=== PATIENT | male | born 1965 | race Caucasian/White ===

== ENCOUNTER 2021-06-17 18:41 | Emergency (ER) | payer OTHER, MEDICAID, SELFPAY ==
[2021-06-17 18:46] VITALS: BP 124/76; PULSE 100; RESP 16; TEMP 37.1; O2SAT 100
--- NOTE | 2021-06-17 18:50 | DI.RAD.S_ITS ---
PROCEDURE: XR CHEST 1V INDICATIONS: chest pain TECHNIQUE: One view of the chest was acquired. COMPARISON: None. FINDINGS: Surgical changes and devices: Postsurgical changes involving left inferior glenoid is seen.. Lungs and pleura: Lungs are clear. No pleural effusions or pneumothorax. Mediastinum: Mediastinal contours appear normal. Heart size is normal. Bones and chest wall: No suspicious bony lesions. Overlying soft tissues appear unremarkable. IMPRESSION: No acute cardiopulmonary pathology. Dictated by: Toni Short M.D. on 06/17/2021 at 19:19 Approved by: Toni Short M.D. on 06/17/2021 at 19:20
--- NOTE | 2021-06-17 18:59 | ED.CHESTPAIN ---
HPI - Chest Pain General Chief Complaint: Chest Pain Stated Complaint: CHEST PAIN Time Seen by Provider: 06/17/21 18:59 Source: patient Mode of arrival: Ambulatory Related Data Allergies Allergy/AdvReac Type Severity Reaction Status Date / Time Serotonin 5HT-3 Antagonists AdvReac Verified 06/17/21 19:54 Patient History Medical History Acid reflux Opioid use disorder PTSD (post-traumatic stress disorder) Social History Smoking Status: Current every day smoker Smoking Status: Current every day smoker Substance Use Type: heroin Exam Initial Vital Signs Initial Vital Signs: Vital Signs Temperature 98.7 F 06/17/21 18:46 Pulse Rate 100 H 06/17/21 18:46 Respiratory Rate 16 06/17/21 18:46 Blood Pressure 124/76 06/17/21 18:46 Pulse Oximetry 100 06/17/21 18:46 Course Orders Ordered: ED Orders 06/17/21 18:50 XR chest 1V Stat EKG-12 Lead Stat 06/17/21 19:05 Complete Blood Count AUTO DIFF Stat Comprehensive Metabolic Panel Stat Lipase Stat Troponin & CK Cardiac Panel Stat Discontinued Medications Aspirin (Aspirin 81 Mg Chew Tab) 324 mg PO NOW ONE Stop: 06/17/21 19:51 Last Admin: 06/17/21 19:57 Dose: 324 mg Documented by: KENNY Buprenorphine/Naloxone (Buprenorphine/Naloxone 8mg/2mg 1 Tab) 2 tab SL NOW ONE Stop: 06/17/21 20:52 Al Hydrox/Mg Hydrox/Simethicone 20 ml/ Lidocaine HCl 15 ml 0 ml PO NOW ONE Stop: 06/17/21 19:51 Last Admin: 06/17/21 19:57 Dose: 35 ml Documented by: KENNY Pantoprazole Sodium (Pantoprazole 40 Mg Vial) 40 mg IV NOW ONE Stop: 06/17/21 20:51 Vital Signs Vital signs: Vital Signs - 8 hr 06/17/21 18:46 06/17/21 19:30 06/17/21 20:00 Temperature 98.7 F Pulse Rate 100 H 82 80 Respiratory Rate 16 18 25 H Blood Pressure 124/76 Pulse Oximetry 100 99 94 MDM - Chest Pain Lab Data Result diagrams: 06/17/21 19:05 07/18/21 19:05 Labs: Lab Results 06/17/21 06/17/21 Range/Units 19:05 19:05 WBC 7.9 (4.5-11.0) X10^3/uL RBC 3.86 L (4.5-5.9) X10^6/uL Hgb 10.3 L (13.5-17.5) g/dL Hct 31.9 L (41-53) % MCV 82.6 (80-100) fL MCH 26.8 (26-34) PG MCHC 32.5 (30-36) % RDW 15.4 H (11.6-14.8) % Plt Count 187 (150-400) X10^3/uL Neut % (Auto) 63.7 (50-75) % Lymph % (Auto) 20.9 L (25-40) % Rich % (Auto) 11.2 (3-14) % Eos % (Auto) 3.4 (2-4) % Baso % (Auto) 0.8 (0-2) % Neut # (Auto) 5000 (3766-9125) /uL Lymph # (Auto) 1700 (1460-7465) /uL Rich # (Auto) 900 (0-900) /uL Eos # (Auto) 300 (0-450) /uL Baso # (Auto) 100 (0-100) /uL Sodium 140 (137-145) mmol/L Potassium 3.4 (3.4-5.1) mmol/L Chloride 109 H (98-107) mmol/L Carbon Dioxide 26 (22-32) mmol/L BUN 16 (9-20) mg/dL Creatinine 0.69 (0.66-1.25) mg/dL Estimated GFR > 60.0 (>60) mL/min BUN/Creatinine Ratio 23.2 H (6-22) Glucose 106 H (70-100) mg/dL Calcium 8.5 (8.4-10.2) mg/dL Total Bilirubin 0.3 (0.2-1.3) mg/dL AST 54 (17-59) IU/L ALT 23 (<50) IU/L Alkaline Phosphatase 101 (38-126) U/L Total Creatine Kinase 684 H (55-170) U/L CK-MB (CK-2) 5.36 H (<2.37) ng/mL CK-MB (CK-2) Rel Index 0.8 L (1.5-5.0) % Troponin I < 0.012 (0.01-0.034) ng/mL Total Protein 6.6 (6.3-8.2) g/dL Albumin 3.6 (3.5-5.0) g/dL Globulin 3.0 (1.7-4.1) g/dL Albumin/Globulin Ratio 1.2 (1.0-2.8) Lipase 19 L (23-300) U/L
[2021-06-17 19:16] LABS: Add Manual Diff / Slide Review NO; Basophils Absolute Auto 100 /uL (0-100); Basophils Percent Auto 0.8 % (0-2); Eosinophils Absolute Auto 300 /uL (0-450); Eosinophils Percent Auto 3.4 % (2-4); Hematocrit 31.9 % (41-53); Hemoglobin 10.3 g/dL (13.5-17.5); Lymphocytes Absolute Auto 1700 /uL (1100-4500); Lymphocytes Percent Auto 20.9 % (25-40); Mean Corpuscular HGB Conc 32.5 % (30-36); Mean Corpuscular Hemoglobin 26.8 PG (26-34); Mean Corpuscular Volume 82.6 fL (80-100); Monocytes Absolute Auto 900 /uL (0-900); Monocytes Percent Auto 11.2 % (3-14); Neutrophils Absolute Auto 5000 /uL (1500-7000); Neutrophils Percent Auto 63.7 % (50-75); Platelet Count 187 X10^3/uL (150-400); Red Blood Cell Count 3.86 X10^6/uL (4.5-5.9); Red Cell Distribution Width 15.4 % (11.6-14.8); White Blood Cell Count 7.9 X10^3/uL (4.5-11.0)
[2021-06-17 19:21] LABS: Alanine Aminotransferase 23 IU/L (<50); Albumin 3.6 g/dL (3.5-5.0); Albumin Globulin Ratio 1.2 (1.0-2.8); Alkaline Phosphatase 101 U/L (38-126); Aspartate Aminotransferase 54 IU/L (17-59); BUN Creatinine Ratio 23.2 (6-22); Bilirubin Total 0.3 mg/dL (0.2-1.3); Blood Urea Nitrogen 16 mg/dL (9-20); Calcium 8.5 mg/dL (8.4-10.2); Carbon Dioxide 26 mmol/L (22-32); Chloride 109 mmol/L (98-107); Creatine Kinase 684 U/L (55-170); Estimated Glomerular Filt Rate > 60.0 mL/min (>60); Glucose 106 mg/dL (70-100); HEMOLYSIS < 15 (0-50); Lipase 19 U/L (23-300); Potassium 3.4 mmol/L (3.4-5.1); Sodium 140 mmol/L (137-145); Total Protein 6.6 g/dL (6.3-8.2)
[2021-06-17 19:30] VITALS: PULSE 82; RESP 18; O2SAT 99
--- NOTE | 2021-06-17 19:31 | ED_ITS ---
HPI - Chest Pain General Chief Complaint: Chest Pain Stated Complaint: CHEST PAIN Time Seen by Provider: 06/17/21 18:59 Source: patient Mode of arrival: Ambulatory History of Present Illness HPI narrative: 56-year-old gentleman with a history of opioid use disorder currently on 16 mg of Suboxone with a recent return to use of heroin because of insurance issues, significant peptic ulcer disease with reflux PTSD who presents with left-sided chest pain. Started last night it is worse when he is crouching or bending over ring gets to the point that he has trouble breathing or swallowing described significant abdominal and chest cramping until he is able to slowly take some deeper breaths and stop the activities currently pursuing. Sometimes the pain feels like severe squeezing in his chest significant enough that he is unable to swallow or catches breath associated with diaphoresis. It is radiating up to the left upper torso shoulder and down his left arm. The 1st time he had such a severe episode was a couple of weeks ago and was significant enough that he have difficulty laying flat. That episode lasted approximately 6 hours. He had another episode 1 week ago that was not quite as severe and resolved spontaneously. Today's episode started last night. He notes that he was able to get up this morning after having a poor night sleep after breakfast he had a small nap was again back to moderate activity in the pain started again. He currently is on 16 mg of Suboxone last dose was over 3 days ago he is used small amount of heroin(smoking) to avoid severe withdrawal symptoms he did use a methamphetamine last night. He currently is in mild withdrawal runny nose and donning at this time only. He denies any nausea vomiting or diarrhea. Specifically he has not had any black stools. He is not dizzy when he stands up. Related Data Previous Rx's Medication Instructions Recorded omeprazole 40 mg capsule,delayed 40 mg PO DAILY #30 cap 06/17/21 release Allergies Allergy/AdvReac Type Severity Reaction Status Date / Time Serotonin 5HT-3 Antagonists AdvReac Verified 06/17/21 19:54 Review of Systems Review of Systems Narrative: Remainder of complete review of systems is otherwise unremarkable except for that included in the HPI. Patient History Medical History Acid reflux Opioid use disorder PTSD (post-traumatic stress disorder) Social History Smoking Status: Current every day smoker Smoking Status: Current every day smoker Substance Use Type: heroin Exam Narrative Exam Narrative: General: Disheveled in quite thin mild distress poor eye contact but able to speak in full sentences and give a complete coherent history. HEENT: Moist mucous membranes, normal sclera with reactive pupils, Neck: No JVD, supple Respiratory: Lungs are clear to auscultation, no wheezing no rales no rhonchi. Full and symmetrical air movement Cardiac: Regular rate and rhythm no murmurs no bruits Abdomen: Soft, nontender, good bowel tones, no flank pain Skin: Warm and dry, no rashes/cellulitis or abscesses. Neurologic: Grossly neurologically intact with no obvious asymmetries or abnormalities Extremities: No trauma, well perfused Psych: Cooperative, appropriate insight and affect Initial Vital Signs Initial Vital Signs: Vital Signs Temperature 98.7 F 06/17/21 18:46 Pulse Rate 100 H 06/17/21 18:46 Respiratory Rate 16 06/17/21 18:46 Blood Pressure 124/76 06/17/21 18:46 Pulse Oximetry 100 06/17/21 18:46 Course Orders Ordered: ED Orders 06/17/21 18:50 XR chest 1V Stat EKG-12 Lead Stat 06/17/21 19:05 Complete Blood Count AUTO DIFF Stat Comprehensive Metabolic Panel Stat Lipase Stat Troponin & CK Cardiac Panel Stat Discontinued Medications Aspirin (Aspirin 81 Mg Chew Tab) 324 mg PO NOW ONE Stop: 06/17/21 19:51 Last Admin: 06/17/21 19:57 Dose: 324 mg Documented by: KENNY Buprenorphine/Naloxone (Buprenorphine/Naloxone 8mg/2mg 1 Tab) 2 tab SL NOW ONE Stop: 06/17/21 20:52 Last Admin: 06/17/21 21:00 Dose: 2 tab Documented by: KENNY Al Hydrox/Mg Hydrox/Simethicone 20 ml/ Lidocaine HCl 15 ml 0 ml PO NOW ONE Stop: 06/17/21 19:51 Last Admin: 06/17/21 19:57 Dose: 35 ml Documented by: KENNY Pantoprazole Sodium (Pantoprazole 40 Mg Vial) 40 mg IV NOW ONE Stop: 06/17/21 20:51 Last Admin: 06/17/21 21:00 Dose: 40 mg Documented by: KENNY Vital Signs Vital signs: Vital Signs - 8 hr 06/17/21 20:00 06/17/21 20:30 06/17/21 21:00 Pulse Rate 80 69 74 Respiratory Rate 25 H 17 16 Blood Pressure Pulse Oximetry 94 100 99 06/17/21 21:09 Pulse Rate 73 Respiratory Rate 13 Blood Pressure 125/76 Pulse Oximetry 99 MDM - Chest Pain Lab Data Result diagrams: 06/17/21 19:05 06/17/21 19:05 Labs: Lab Results 06/17/21 06/17/21 Range/Units 19:05 19:05 WBC 7.9 (4.5-11.0) X10^3/uL RBC 3.86 L (4.5-5.9) X10^6/uL Hgb 10.3 L (13.5-17.5) g/dL Hct 31.9 L (41-53) % MCV 82.6 (80-100) fL MCH 26.8 (26-34) PG MCHC 32.5 (30-36) % RDW 15.4 H (11.6-14.8) % Plt Count 187 (150-400) X10^3/uL Neut % (Auto) 63.7 (50-75) % Lymph % (Auto) 20.9 L (25-40) % [place] % (Auto) 11.2 (3-14) % Eos % (Auto) 3.4 (2-4) % Baso % (Auto) 0.8 (0-2) % Neut # (Auto) 5000 (7965-5720) /uL Lymph # (Auto) 1700 (7360-4868) /uL [place] # (Auto) 900 (0-900) /uL Eos # (Auto) 300 (0-450) /uL Baso # (Auto) 100 (0-100) /uL Sodium 140 (137-145) mmol/L Potassium 3.4 (3.4-5.1) mmol/L Chloride 109 H (98-107) mmol/L Carbon Dioxide 26 (22-32) mmol/L BUN 16 (9-20) mg/dL Creatinine 0.69 (0.66-1.25) mg/dL Estimated GFR > 60.0 (>60) mL/min BUN/Creatinine Ratio 23.2 H (6-22) Glucose 106 H (70-100) mg/dL Calcium 8.5 (8.4-10.2) mg/dL Total Bilirubin 0.3 (0.2-1.3) mg/dL AST 54 (17-59) IU/L ALT 23 (<50) IU/L Alkaline Phosphatase 101 (38-126) U/L Total Creatine Kinase 684 H (55-170) U/L CK-MB (CK-2) 5.36 H (<2.37) ng/mL CK-MB (CK-2) Rel Index 0.8 L (1.5-5.0) % Troponin I < 0.012 (0.01-0.034) ng/mL Total Protein 6.6 (6.3-8.2) g/dL Albumin 3.6 (3.5-5.0) g/dL Globulin 3.0 (1.7-4.1) g/dL Albumin/Globulin Ratio 1.2 (1.0-2.8) Lipase 19 L (23-300) U/L ECG Data Interpretation: Sinus rhythm at a rate of 85 Normal axis, normal interval No acute ischemic changes MDM Narrative Medical decision making narrative: Complains of left-sided chest pain and chest cramping particularly worse when he is bending over or crouching down. Workup does not suggest acute coronary syndrome, pneumonia and he has no evidence of acute GI bleeding. In the past he has had peptic ulcer disease and his pain is significantly improved with a GI cocktail. He is having some withdrawal symptoms secondary to his opioid use disorder and is restarted on his Suboxone until prescription can be available tomorrow. Reassurance is given and he is safe for home discharge Discharge Plan Departure Patient Disposition: Home Clinical Impression: Opioid use disorder, Chest pain, non-cardiac Instructions: DI for Gastritis Activity Restrictions/Additional Instructions: Thank you for coming in today There is no evidence of acute coronary disease, pneumonia, pneumothorax or other life-threatening issues. I suspect that the pain that your experiencing is from your stomach and the irritated lining of your stomach. You might consider using Maalox and see if that helps with the acute symptoms. Please continue with your omeprazole daily. I have given you a dose of Suboxone in the emergency room this evening. I hope you are able to get the insurance and prescription details figured out tomorrow. I wish you the best Prescriptions: New omeprazole 40 mg capsule,delayed release(DR/EC) 40 mg PO DAILY Qty: 30 RF: 0
--- NOTE | 2021-06-17 19:32 | PC.NURSE ---
Patient had sudden onset crushing left side pain about 2 weeks ago which has recurred intermittently since then. He has been off his seboxone for 3 days and has been using heroin and meth to help offset withdrawals.
[2021-06-17 19:33] LABS: Troponin I < 0.012 ng/mL (0.01-0.034)
[2021-06-17 19:37] LABS: CKMB % Relative Index 0.8 % (1.5-5.0); Creatine Kinase MB 5.36 ng/mL (<2.37)
[2021-06-17] MEDS: ASPIRIN 81 MG CHEW TAB 324 MG PO (19:57)
[2021-06-17] MEDS: MAG HYDROX/ALUMINUM/SIMETH SUS 20 ML, LIDOCAINE VISCOUS 2% 15 ML PO (19:57)
[2021-06-17 20:00] VITALS: PULSE 80; RESP 25; O2SAT 94
[2021-06-17 20:30] VITALS: PULSE 69; RESP 17; O2SAT 100
[2021-06-17 21:00] VITALS: PULSE 74; RESP 16; O2SAT 99
[2021-06-17] MEDS: PANTOPRAZOLE 40 MG VIAL IV (21:00)
[2021-06-17] MEDS: BUPRENORPHINE/NALOXONE 8MG/2MG 1 TAB 2 TAB SL (21:00)
[2021-06-17 21:09] VITALS: BP 125/76; PULSE 73; RESP 13; O2SAT 99
== END 2021-06-17 21:49 | disposition home or self-care (01) ==
PROVIDERS: Emergency Provider Emergency Medicine
DX: R07.9 Chest pain, unspecified (principal); F11.93 Opioid use, unspecified with withdrawal
CPT/HCPCS: 36415; 71045; 80053; 82550; 82553; 83690; 84484; 85025; 93005; 93010; 96374; 99284; C9113

== ENCOUNTER 2021-07-22 13:55 | Emergency (ER) | payer OTHER, MEDICAID, SELFPAY ==
[2021-07-22 14:01] VITALS: BP 139/82; PULSE 85; RESP 18; TEMP 36.4; O2SAT 97; BMI 22.3
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
[2021-07-22] MEDS: KETOROLAC 30 MG/ML VIAL IM (14:15)
[2021-07-22 14:30] VITALS: BP 126/90; PULSE 80; RESP 18; O2SAT 97
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
[2021-07-22 15:00] VITALS: BP 124/83; PULSE 80; RESP 18; O2SAT 97
[2021-07-22 15:36] VITALS: BP 150/80; PULSE 90; RESP 18; O2SAT 99
[2021-07-22 17:00] VITALS: BP 150/74; PULSE 80; RESP 18; O2SAT 98
[2021-07-22] MEDS: SILVER SULFADIAZINE 1% CREAM 25 GM 1 APPLIC TOP (17:20)
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
== END 2021-07-22 18:18 | disposition left against medical advice (07) ==
PROVIDERS: Emergency Provider Emergency Medicine
DX: T23.202A Burn of second degree of left hand, unspecified site, initial encounter (principal)
CPT/HCPCS: 96372; 99283; 99284; J1885

== ENCOUNTER 2021-07-23 21:34 | Emergency (ER) | payer OTHER, MEDICAID, SELFPAY ==
[2021-07-23 21:43] VITALS: BP 130/75; PULSE 95; RESP 16; TEMP 37.3; O2SAT 97; BMI 22.3
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
[2021-07-24] MEDS: SILVER SULFADIAZINE 1% CREAM 25 GM 1 APPLIC TOP (00:35)
[2021-07-24 01:12] VITALS: BP 122/68; PULSE 86; RESP 17; O2SAT 99
--- NOTE | 2021-07-24 01:12 | PC.NURSE ---
[facility] transfer Report form faxed at this time.
[2021-07-24 01:35] LABS: COVID19 -Nasal RAPID Negative (Negative)
--- NOTE | 2021-07-24 01:35 | PC.NURSE ---
gave Pt half a turkey sandwich,pudding, string cheese, fruit cup, and a elif lauren.
== END 2021-07-24 02:58 | disposition short-term general hospital (02) ==
PROVIDERS: Emergency Provider Emergency Medicine
DX: T23.262D Burn of second degree of back of left hand, subsequent encounter (principal); Z20.822 Contact with and (suspected) exposure to COVID-19
CPT/HCPCS: 87635; 99282; 99283; C9803